=== PATIENT | male | born 1990 | race Caucasian/White ===

== ENCOUNTER 2017-08-20 20:31 | Emergency (ER) | payer BC ==
[2017-08-20 20:37] VITALS: BP 157/105; PULSE 77; TEMP 98.7; BMI 31.5
--- NOTE | 2017-08-20 20:41 | PDOC ---
History of Present Illness - General History Source: Patient Exam Limitations: No Limitations - History of Present Illness Initial Comments: 08/20/17 21:18 The patient is a 26-year-old male, with no significant past medical history, who presents to the ED with s/p panic attack and headache. Patient states prior to presentation he was experiencing labored breathing and an irregular heartbeat which have now resolved. He is now complaining of a frontal headache that he rates a 7/10 in severity. As per patient's mother, he has been experiencing similar symptoms for the past three years around the same time ( during August, September, October) for which he has been worked up at many different facilities. His symptoms have been attributed to anxiety and panic attacks. He denies taking any medications. He visited an Urgent Care clinic on Monday and was worked up; all tests were negative. The patient has seen a [facility] in the past and had an EKG and echo done which were also negative. The patient is currently not seeing a psychiatrist. The patient denies any fever, chills, nausea, vomiting, diarrhea, or abdominal pain. Denies any shortness of breath or chest pain. Allergies: NKA Social History: The patient denies any tobacco, alcohol, or drug use. <Elva Lim - Last Filed: 08/20/17 21:34> <Elías Long - Last Filed: 08/21/17 06:31> - General Chief Complaint: Pain, Acute Stated Complaint: PANIC ATTACK/HEADACHE Time Seen by Provider: 08/20/17 20:39 Past History <Elva Lim - Last Filed: 08/20/17 21:34> - Past Medical History COPD: No Other medical history: PANIC ATTACK IN THE PAST - Suicide/Smoking/Psychosocial Hx Smoking History: Never smoked Have you smoked in the past 12 months: No Information on smoking cessation initiated: No Hx Alcohol Use: No Drug/Substance Use Hx: No Substance Use Type: None <Elías Long - Last Filed: 08/21/17 06:31> - Past Medical History Allergies/Adverse Reactions: Allergies Allergy/AdvReac Type Severity Reaction Status Date / Time No Known Allergies Allergy Verified 08/20/17 20:32 Home Medications: Ambulatory Orders Diazepam [Valium] 5 mg PO DAILY PRN #3 tablet MDD 5mg 08/20/17 Review of Systems - Review of Systems Able to Perform ROS?: Yes Comments:: 08/20/17 21:20 GENERAL/CONSTITUTIONAL: No fever or chills. No weakness. HEAD, EYES, EARS, NOSE AND THROAT: No change in vision. No ear pain or discharge. No sore throat. CARDIOVASCULAR: No chest pain or shortness of breath. RESPIRATORY: No cough, wheezing, or hemoptysis. GASTROINTESTINAL: No nausea, vomiting, diarrhea or constipation. GENITOURINARY: No dysuria, frequency, or change in urination. MUSCULOSKELETAL: No joint or muscle swelling or pain. No neck or back pain. SKIN: No rash NEUROLOGIC: (+)Headache. No vertigo, loss of consciousness, or change in strength/sensation. ENDOCRINE: No increased thirst. No abnormal weight change. HEMATOLOGIC/LYMPHATIC: No anemia, easy bleeding, or history of blood clots. ALLERGIC/IMMUNOLOGIC: No hives or skin allergy. <Elva Lim - Last Filed: 08/20/17 21:34> *Physical Exam - Vital Signs Last Vital Signs Temp Pulse Resp BP Pulse Ox 98.7 F 77 16 157/105 100 08/20/17 20:32 08/20/17 20:32 08/20/17 20:32 08/20/17 20:32 08/20/17 20:32 - Physical Exam Comments: 08/20/17 21:20 GENERAL: (+)Anxious-appearing, slightly diaphoretic. Awake, alert, and fully oriented, in no acute distress. HEAD: No signs of trauma EYES: PERRLA, EOMI, sclera anicteric, conjunctiva clear ENT: Auricles normal inspection, nares patent, oropharynx clear without exudates. Moist mucosa. NECK: Normal ROM, supple, no lymphadenopathy, JVD, or masses LUNGS: Breath sounds equal, clear to auscultation bilaterally. No wheezes, and no crackles HEART: Regular rate and rhythm, normal S1 and S2, no murmurs, rubs or gallops ABDOMEN: Soft, nontender, normoactive bowel sounds. No guarding, no rebound. No masses EXTREMITIES: Normal range of motion, no edema. No clubbing or cyanosis. No cords, erythema, or tenderness NEUROLOGICAL: Alert and oriented x 3. Moves all extremities. Face is symmetric. SKIN: Warm, Dry, normal turgor, no rashes or lesions noted. <Elva Lim - Last Filed: 08/20/17 21:34> - Vital Signs Last Vital Signs Temp Pulse Resp BP Pulse Ox 98.7 F 77 16 157/105 100 08/20/17 20:32 08/20/17 20:32 08/20/17 20:32 08/20/17 20:32 08/20/17 20:32 <Elías Long - Last Filed: 08/21/17 06:31> Medical Decision Making - Medical Decision Making 08/21/17 06:30 panic attack symptoms now mostly resolved discussed with pt appropriate use of meds/ complementary therapies for acute attack psych fu <Elías Long - Last Filed: 08/21/17 06:31> *DC/Admit/Observation/Transfer - Attestations Scribe Attestion: 08/20/17 21:21 Documentation prepared by Elva Lim, acting as medical nurse for Elías Long MD. <Elva Lim - Last Filed: 08/20/17 21:34> <Elías Long - Last Filed: 08/21/17 06:31> Diagnosis at time of Disposition: Panic attack - Discharge Dispostion Disposition: HOME Condition at time of disposition: Stable - Prescriptions Prescriptions: Diazepam [Valium] 5 mg PO DAILY PRN #3 tablet MDD 5mg PRN Reason: Anxiety - Referrals Referrals: Alok James MD [Staff Physician] - Tres Pagan MD [Staff Physician] - - Patient Instructions Printed Discharge Instructions: DI for Panic Disorder
== END 2017-08-20 20:47 | disposition home or self-care (01) ==
LOC: FER 20:31
DX: F41.0 Panic disorder [episodic paroxysmal anxiety] (principal)
CPT/HCPCS: 99281-25